=== PATIENT | female | born 1995 | race Caucasian/White ===

== ENCOUNTER 2017-09-24 00:22 | Outpatient (CLI) | payer OTHER ==
[2017-09-24 00:45] VITALS: BP 122/71
[2017-09-24] MEDS ORDERED: VISTARIL PO ONE (01:48)
== END 2017-09-24 02:05 | disposition home or self-care (01) ==
LOC: TRG 00:22
PROVIDERS: ATTEND Obstetrics & Gynecology
DX: O47.1 False labor at or after 37 completed weeks of gestation (principal); Z3A.38 38 weeks gestation of pregnancy
CPT/HCPCS: 59025; Q0177

== ENCOUNTER 2017-09-25 09:15 | Inpatient (IN) | payer OTHER ==
[2017-09-25] MEDS ORDERED: CYTOTEC ONE (09:21)
[2017-09-25] MEDS ORDERED: BRETHINE SUB-Q PRN (09:33)
[2017-09-25] MEDS ORDERED: XYLOCAINE 2% INFILTRATI ONE (09:33)
[2017-09-25] MEDS ORDERED: CYTOTEC PR ONE (09:35)
[2017-09-25] MEDS ORDERED: LANSINOH TP PRN (09:36)
[2017-09-25] MEDS ORDERED: NORCO 5/325 PO PRN (09:36)
[2017-09-25] MEDS ORDERED: TYLENOL PO PRN (09:36)
[2017-09-25] MEDS ORDERED: DULCOLAX PR PRN (09:36)
[2017-09-25] MEDS ORDERED: MILK OF MAGNESIA PO PRN (09:36)
[2017-09-25] MEDS ORDERED: BENADRYL PO PRN (09:36)
[2017-09-25] MEDS ORDERED: TUCKS PAD TP PRN (09:36)
[2017-09-25] MEDS ORDERED: ZOFRAN IV PRN (09:36)
[2017-09-25] MEDS ORDERED: PHENERGAN PO PRN (09:36)
--- NOTE | 2017-09-25 09:55 | History and Physical Report ---
History of Present Illness Date of examination: 09/25/17 (pt presents in labor imminent delivery) Date of admission: 09/25/17 09:17 History of present illness: EDC Confirmation: 10/05/2017 Gestational Age: 8 5/7 weeks Past History : 3 Term Births: 1 Living Children: 1 Para: 1 Aborta: 1 Spont. Ab: 1 # 1 Delivery date: 12/2013 Weeks Gestation: 10 Delivery type: SAB # 2 Delivery date: 03/06/2015 Weeks Gestation: 41 Delivery type: Vaginal Anesthesia type: epidural Delivery location: [facility] Infant Sex: male weight: 6.81 Comments: postdates IOL Risk Factors: Smoked Tobacco Use: Never smoker Smokeless Tobacco Use: Never Passive smoke exposure: no Drug use: no HIV high-risk behavior: low risk Alcohol use: no Past Medical History: Reviewed history from 07/03/2014 and no changes required: none Past Surgical History: Reviewed history from 07/03/2014 and no changes required: negative Past Medical History Anesthesia Complications: negative Anemia: negative Autoimmune Disorder: negative Bleeding Disorder: negative Blood Transfusions: negative Breast Disease: negative Diabetes: negative Heart Disease: negative Hypertension: negative Hepatitis/Liver Disease: negative Kidney Disease/UTI: negative Neurologic/Epilepsy/Migraines: negative Phlebitis/Varicosities: negative Psychiatric: negative Pulmonary Disease/Asthma: negative Thyroid Disease: negative Hospitalizations: negative Surgery (Non-salt miner): negative Abnormal PAP: negative MIKEL Exposure: negative Infertility: negative Uterine Anomaly: negative Uterine Surgery (not C/S): negative Other Gynecologic Problems: negative Social Hx: Patient is single [place] Smoking History: Patient has never smoked. Infection History Hx of STD: none HIV Risk Eval: low risk Hepatitis B Risk Eval: low risk Varicella/Chicken Pox Status: Previous Disease TB Risk: no Genetic History Congenital Heart Defect: Mom: no Dad: no Isael Disease: Mom: no Dad: no Thalassemia Mom: no Dad: no Neural Tube Defect Mom: no Dad: no Down's Syndrome Mom: no Dad: yes Comments: Dad 1st cousin Jovanny-Sachs Mom: no Dad: no Sickle Cell Disease/Trait Mom: no Dad: no Hemophilia Mom: no Dad: no Muscular Dystrophy Mom: no Dad: no Cystic Fibrosis Mom: no Dad: no Lee Ann Chorea Mom: no Dad: no Mental Retardation Mom: no Dad: no Fragile X Mom: no Dad: no Other Genetic/Chromosomal Disorder Mom: no Dad: no Child w/other defect Dad: no Comments: motor delay at 1 y/o Enviromental Exposures Xray Exposure: no Medication, drug, or alcohol use since LMP: no Chemical/Other Exposure: no Exposure to Cat Liter: no Hx of Parvovirus (Fifth Disease): no Active Medications (reviewed today): PLUS 27-1 MG ORAL TABLET ( VIT-FE FUMARATE-FA) 1 po qd Current Allergies: No known allergies Past History - Obstetrical History Expected Date of Delivery: 10/05/17 Actual Gestation: 38 Week(s) 4 Day(s) : 3 Para: 1 Hx # Term Pregnancies: 1 Spontaneous Abortions: 1 Number of Living Children: 1 Medications and Allergies Allergies Allergy/AdvReac Type Severity Reaction Status Date / Time No Known Allergies Allergy Verified 01/17/14 08:53 Home Medications Medication Instructions Recorded Confirmed Last Taken Type Pnv 29-1 Tablet 1 tab PO DAILY 09/24/17 09/24/17 09/23/17 10:00 History Active Meds: Active Medications Acetaminophen (Tylenol) 650 mg PO Q4H PRN PRN Reason: Pain MILD(1-3)/Fever >100.5/[place] Acetaminophen/Hydrocodone Bitart (Esparto 5/325) 2 each PO Q6H PRN PRN Reason: Pain, Moderate (4-6) Bisacodyl (Dulcolax) 10 mg ID BID PRN PRN Reason: Constipation Diphenhydramine HCl (Benadryl) 25 mg PO Q6H PRN PRN Reason: Itching Diphtheria/Tetanus/Acell Pertussis (Boostrix) 0.5 ml IM .ONCE ONE Stop: 09/26/17 06:01 Lactated Ringer's (Lactated Ringers) 1,000 mls @ 125 mls/hr IV DIRECT APRYL Oxytocin/Sodium Chloride (Pitocin/Ns 20 Unit/1000ml Drip) 20 units in 1,000 mls @ 125 mls/hr IV DIRECT APRYL Ibuprofen (Motrin) 800 mg PO Q8H APRYL Magnesium Hydroxide (Milk Of Magnesia) 30 ml PO HS PRN PRN Reason: Constipation Measles/Mumps/Rubella Vaccine Live (M-M-R Ii Vaccine) 0.5 ml SUB-Q .ONCE ONE Stop: 09/26/17 06:01 Multi-Ingredient Ointment (Lansinoh) 1 applic TP PRN PRN PRN Reason: Sore Nipples Ondansetron HCl (Zofran) 4 mg IV Q8H PRN PRN Reason: Nausea And Vomiting Promethazine HCl (Phenergan) 25 mg PO Q6H PRN PRN Reason: Nausea And Vomiting Sodium Chloride (Sodium Chloride Flush Syringe 10 Ml) 10 ml IV PRN NR Stop: 09/27/17 09:59 Terbutaline Sulfate (Brethine) 0.25 mg SUB-Q ONCE PRN PRN Reason: Hyperstimulation/Hypertonicity Witch Terese/Glycerin (Tucks Pad) 1 each TP PRN PRN PRN Reason: Hemorrhoid/cleansing/soothing - Vital Signs Vital signs: Temp Pulse Resp BP Pulse Ox 70 137/63 09/25/17 09:53 09/25/17 09:53 - Physical Exam Breasts: Positive: deferred Cardiovascular: Regular rate, Normal S1, Normal S2 Lungs: Positive: Clear to auscultation Abdomen: Positive: normal appearance, soft, normal bowel sounds. Negative: distention, tenderness Genitourinary (Female): Positive: normal external genitalia Vulva: both: normal Vagina: Positive: normal moisture. Negative: discharge Cervix: Negative: lesion, discharge Uterus: Positive: normal size, normal contour Adnexa: both: normal Anus/Rectum: Positive: normal perianal skin, heme negative. Negative: rectal mass, hemorrhoids Extremities: Positive: normal Deep Tendon Reflex Grade: Normal +2 - Obstetrical FHR: auscultation normal Cervical Dilatation: 10 (BBOW clear fluid) Cervical Effacement Percentage: 100 station: +2 Uterine Contraction Pattern: Regular Uterine Contraction Intensity: Strong/Firm Results All other labs normal. Strep Gp B ILYA [A] Positive HBsAg Screen Negative Negative *1 RPR Non Reactive Non Reactive *2 Rubella Antibodies, IgG 1.86 index Immune >0.99 *3 Non-immune <0.90 Equivocal 0.90 - 0.99 Immune >0.99 ABO Grouping A *4 Rh Factor Positive *5 Please note: Prior records for this patient's ABO / Rh type are not available for additional verification. Antibody Screen Negative Negative *6 WBC 6.3 x10E3/uL 3.4-10.8 *7 RBC 4.06 x10E6/uL 3.77-5.28 *8 Hemoglobin 12.0 g/dL 11.1-15.9 *9 Hematocrit 36.8 % 34.0-46.6 *10 MCV 91 fL 79-97 *11 MCH 29.6 pg 26.6-33.0 *12 MCHC 32.6 g/dL 31.5-35.7 *13 RDW 14.2 % 12.3-15.4 *14 Platelets 228 x10E3/uL 150-379 *15 Neutrophils 66 % Not Estab. *16 Lymphs 25 % Not Estab. *17 Monocytes 8 % Not Estab. *18 Eos 1 % Not Estab. *19 Basos 0 % Not Estab. *20 ! Immature Cells <No Reported Value> *21 Neutrophils (Absolute) 4.2 x10E3/uL 1.4-7.0 *22 Lymphs (Absolute) 1.6 x10E3/uL 0.7-3.1 *23 Monocytes(Absolute) 0.5 x10E3/uL 0.1-0.9 *24 Eos (Absolute) 0.1 x10E3/uL 0.0-0.4 *25 Baso (Absolute) 0.0 x10E3/uL 0.0-0.2 *26 ! Immature Granulocytes 0 % Not Estab. *27 ! Immature Grans (Abs) 0.0 x10E3/uL 0.0-0.1 *28 ! NRBC <No Reported Value> *29 Hematology Comments: <No Reported Value> *30 Tests: (2) Cystic Fibrosis Profile (445871) ! CF, Screen Comment: *31 RESULTS: Negative for 32 mutations analyzed Tests: (3) HB Solu + Rflx [facility] ([id number]) Hemoglobin (Hgb) Solubility Negative Negative *33 Tests: (4) Panel 265337 ([id number]) HIV Screen 4th Generation wRfx Non Reactive Non Reactive *34 Tests: (5) HCV Ab w/Rflx to Verification ([id number]) ! HCV Ab 0.1 s/co ratio 0.0-0.9 *35 Tests: (6) Comment: ([id number]) ! Comment: SPRCS *36 Non reactive HCV antibody screen is consistent with no HCV infection, unless recent infection is suspected or other evidence exists to indicate HCV infection. Tests: (7) Urine Culture, Routine ([id number]) Urine Culture, Routine Final report *37 Tests: (8) Result ([id number]) ! Result 1 "Result Below..." *38 RESULT: Lactobacillus species 25,000-50,000 colony forming units per mL Susceptibility not normally performed on this organism. Assessment and Plan 21yo @ 38 weeks Precipitous labor Imminent delivery. GBS+ Orders in EMR
[2017-09-25] MEDS ORDERED: SODIUM CHLORIDE FLUSH SYRINGE 10 ML IV NR (10:00)
[2017-09-25] MEDS ORDERED: PITOCin/NS 20 UNIT/1000ML DRIP 20 UNITS/1,000 ML BAG IV SCH (10:00)
[2017-09-25] MEDS ORDERED: LACTATED RINGERS 1,000 ML IV SCH (10:00)
--- NOTE | 2017-09-25 10:05 | Procedure Note ---
OB Delivery Note - Delivery Date of Delivery: 09/25/17 Skin Piler: ROC BATISTA Estimated blood loss: 500cc - Vaginal Delivery presentation: vertex Delivery position: OA Intrapartum events: precipitous labor- <3hr Delivery induction: none Delivery monitor: none Route of delivery: Delivery placenta: spontaneous Delivery cord: 3 umbilical vessels Episiotomy: none Delivery laceration: 2nd degree Delivery repair: vicryl Anesthesia: local Delivery comments: Pt presented to Triage from home in active labor Fully dilated on arrival live born female over intact perineum Baby skin to skin. Cord blood obtained Placenta and membrane del complete and intact, 3 vessel cord. Pit IM given. Uterus boggy Cytotec 800mcgPR placed. 2nd degree laceration repaired with 2-0 vicryl over lidocaine. IV started Pitocin IVFs 8/9, EBL 500, Wgt 7-8.Mom and baby remain LDR stable FF @ umb Lochia mod - Infant A at 1 minute: 8 at 5 minutes: 9 Infant Gender: Female (wgt 7-8)
[2017-09-25 12:10] LABS: Hematocrit 43.7 % (30.3-42.9); Hemoglobin 14.9 gm/dl (10.1-14.3); Mean Corpuscular HGB Conc 34 % (30-34); Mean Corpuscular Hemoglobin 32 pg (28-32); Mean Corpuscular Volume 94 fl (79-97); Platelet Count 159 K/mm3 (140-440); Red Blood Count 4.66 M/mm3 (3.65-5.03); Red Cell Distribution Width 14.5 % (13.2-15.2)
[2017-09-25] MEDS: MOTRIN PO SCH (12:56)
[2017-09-25] MEDS ORDERED: MOTRIN PO SCH (14:00)
[2017-09-25 21:00] LABS: Hematocrit 38.1 % (30.3-42.9); Hemoglobin 12.9 gm/dl (10.1-14.3)
[2017-09-26] MEDS: MOTRIN PO SCH ×3 (02:47→18:40)
[2017-09-26] MEDS ORDERED: M-M-R II VACCINE SUB-Q ONE (06:00)
[2017-09-26] MEDS ORDERED: BOOSTRIX IM ONE (06:00)
--- NOTE | 2017-09-26 08:42 | Progress Note ---
Assessment and Plan - Patient Problems (1) Group B streptococcal infection during Current Visit: No Status: Acute Plan to address problem: -cont' pathway for -d/c home with infant cleared for d/c home (2) Spontaneous vaginal delivery Current Visit: No Status: Acute Plan to address problem: -routine pp care -d/c home in am Subjective - Subjective Date of service: 09/26/17 Principal diagnosis: PPD #1 s/p Interval history: Pt doing well. she is aware that due to GBS (+) status she will not be d/c home today. She is breast feeding and will get BTL for contraception. All questions were addressed and answered. Patient reports: appetite normal, voiding normally, pain well controlled, no dizzy ambulation : doing well, nursing well Objective - Vital Signs Latest vital signs: Vital Signs Temp Pulse Resp BP BP Pulse Ox 09/26/17 00:00 98.7 F 77 18 101/78 09/25/17 20:00 98.7 F 69 18 101/79 09/25/17 16:00 98.5 F 77 18 102/51 99 09/25/17 12:00 98.1 F 55 L 18 129/59 98 09/25/17 10:50 98.8 F 65 136/66 09/25/17 10:23 59 L 142/64 09/25/17 10:07 65 136/66 09/25/17 09:53 70 137/63 Intake and Output 09/25/17 09/26/17 09/26/17 22:59 06:59 14:59 Intake Total 300 1600 Balance 300 1600 Intake: IV 1000 PITOCin/NS 20 UNIT/1000ML 1000 DRIP 20 units In 1,000 ml @ 125 mls/hr IV DIRECT APRYL Rx#:[id number] Intake, Free Water 300 600 - Exam Breasts: Present: deferred Cardiovascular: Present: Regular rate, Normal S1, Normal S2 Lungs: Present: Clear to auscultation, Normal air movement Abdomen: Present: normal appearance, soft, normal bowel sounds. Absent: distention, tenderness, guarding Uterus: Present: normal, firm, fundal height below umbilicus. Absent: bogginess Extremities: Present: normal. Absent: tenderness, edema - Labs Labs: Abnormal lab results 09/25/17 Range/Units 09:11 Hgb 14.9 H (10.1-14.3) gm/dl Hct 43.7 H (30.3-42.9) %
[2017-09-27] MEDS: MOTRIN PO SCH ×2 (00:41→09:53)
--- NOTE | 2017-09-27 07:58 | Discharge Summary ---
Providers - Providers Date of Admission: 09/25/17 09:17 Date of discharge: 09/27/17 (desires d/c home) Attending physician: OSORIO ARRIOLA Primary care physician: OSORIO ARRIOLA Hospitalization Reason for admission: labor Condition: Good Procedures: uncomplicated vaginal delivery Hospital course: uncomplicated vaginal and course Disposition: DC-01 TO HOME OR SELFCARE - Discharge Diagnoses (1) Spontaneous vaginal delivery Status: Acute Core Measure Documentation - Palliative Care Palliative Care/ Comfort Measures: Not Applicable - Core Measures Any of the following diagnoses?: none Exam - Constitutional Vitals: Temp Pulse Resp BP Pulse Ox 98.5 F 69 18 109/61 96 09/27/17 01:50 09/27/17 01:50 09/27/17 01:50 09/27/17 01:50 09/26/17 17:37 General appearance: Present: no acute distress, well-nourished - EENT Eyes: Present: PERRL ENT: hearing intact, clear oral mucosa - Neck Neck: Present: supple, normal ROM - Respiratory Respiratory effort: normal Respiratory: bilateral: CTA - Cardiovascular Heart Sounds: Present: S1 & S2. Absent: rub, click - Extremities Extremities: pulses symmetrical, No edema Peripheral Pulses: within normal limits - Abdominal General gastrointestinal: Present: soft, non-tender, non-distended, normal bowel sounds Female genitourinary: Present: normal - Integumentary Integumentary: Present: clear, warm, dry - Musculoskeletal Musculoskeletal: gait normal, strength equal bilaterally - Psychiatric Psychiatric: appropriate mood/affect, intact judgment & insight - Neurologic Neurologic: CNII-XII intact, moves all extremities - Additional findings Additional findings: Fundus firm, lochia small, VSSAF, H&H stable, Plan Activity: no restrictions Diet: regular Follow up with: OSORIO ARRIOLA MD [Primary Care Provider] - 11/01/17 (Congratulations! Please call [phone] to schedule your visit in 4 weeks. Call for any questions or concerns. ) Forms: [facility] Discharge Summary Prescriptions: Ibuprofen [Motrin 800 MG tab] 800 mg PO Q8HR PRN #30 tablet PRN Reason: Pain
[2017-09-27 08:34] VITALS: BP 100/54
== END 2017-09-27 15:10 | disposition home or self-care (01) | DRG 775 ==
LOC: TRG 09:15 → LD 09:17 → OB 12:06
PROVIDERS: ADMIT Obstetrics & Gynecology; ATTEND Obstetrics & Gynecology
PROC: 10E0XZZ Delivery of Products of Conception, External Approach (ICD-10-PCS; principal; 2017-09-25)
PROC: 0KQM0ZZ Repair Perineum Muscle, Open Approach (ICD-10-PCS; 2017-09-25)
PROC: 3E0234Z Introduction of Serum, Toxoid and Vaccine into Muscle, Percutaneous Approach (ICD-10-PCS; 2017-09-26)
DX: O62.3 Precipitate labor (principal); O99.824 Streptococcus B carrier state complicating childbirth; Z3A.38 38 weeks gestation of pregnancy; Z37.0 Single live birth; Z79.899 Other long term (current) drug therapy; O70.1 Second degree perineal laceration during delivery; Z23 Encounter for immunization
CPT/HCPCS: 36415; 85014; 85018; 85027; 86592; 86850; 86900; 86901; 99211; G0463; J2590

== ENCOUNTER 2018-12-15 06:08 | Day surgery (SDC) | payer OTHER ==
--- NOTE | 2018-12-14 16:37 | History and Physical Report ---
History of Present Illness Date of examination: 12/13/18 History of present illness: 23 YOHF Patient desires sterilization. Discussed with various methods of contraceptives including abstinence, barrier and hormonal. Discussed oral, implantable, dermal, injectable,intravaginal and intrauterine methods. Patient declined temporary contraceptives. Discuss the permanency of sterilization. High risk of regret and 0.5 to 1% risk of failure. Questions answered Patient understands and desires to proceed. Vital Signs: Patient Profile: 23 Years Old Female LMP: 11/26/2018 Height: 62 inches (157.48 cm) Weight: 144 pounds BMI: 26.34 Menstrual History: LMP (date): 11/26/2018 Current Method of Contraception: None Past History : 3 Term Births: 2 Premature Births: 0 Living Children: 2 Para: 2 Mult. Births: 0 Prev : 0 Aborta: 1 Elect. Ab: 0 Spont. Ab: 1 Ectopics: 0 # 1 Delivery date: 12/2013 Weeks Gestation: 10 Delivery type: SAB # 2 Delivery date: 03/06/2015 Weeks Gestation: 41 Delivery type: Vaginal Anesthesia type: epidural Delivery location: [facility] Infant Sex: male weight: 6.81 Comments: postdates IOL # 3 Delivery date: 09/25/2017 Weeks Gestation: 38 Delivery type: Vaginal Anesthesia type: none Delivery location: [facility] Infant Sex: female weight: 7.50 Comments: precipitous delivery; GBS+ untreated PILOT INSTRUCTOR History Uterine Surgery (not C/S): negative Operations: negative Anesthesia Complications: negative Abnormal PAP: Yes Uterine Anomaly: negative MIKEL Exposure: negative Infertility: negative Infection History HIV Risk Eval: no TB exposure: no Personal hx. of genital herpes: no Partner hx. of genital herpes: no Hx of STD: none Current Allergies: No known allergies Past Medical History: none Past Surgical History: negative Family History Summary: MGF - Has Family History of Hypertension - Entered On: 07/03/2014 Other family member - Has No Family History of Breast Cancer - Entered On: 07/03/2014 Other family member - Has No Family History of Cervical Cancer - Entered On: 07/03/2014 Other family member - Has No Family History of Colon Cancer - Entered On: 07/03/2014 Other family member - Has No Family History of Ovarvian Cancer - Entered On: 07/03/2014 Other family member - Has No Family History of DVT/PE on OCP - Entered On: 07/03/2014 Risk Factors: Smoked Tobacco Use: Never smoker Smokeless Tobacco Use: Never Passive smoke exposure: no Drug use: no HIV high-risk behavior: no Caffeine use: 0 drinks per day Alcohol use: no Exercise: yes Times per week: 6 Seatbelt use: 100 % Review of Systems General Denies fever, chills, sweats, anorexia, fatigue, weakness, malaise, weight loss and sleep disorder. Denies vaginal discharge, incontinence, dysuria, hematuria, urinary frequency, amenorrhea, menorrhagia, abnormal vaginal bleeding, pelvic pain, genital sores, decreased libido, painful periods, painful sex, urinary urgency, hot flashes, vaginal dryness, vaginal itching and vaginal odor. CV Denies chest pains, palpitations, syncope, dyspnea on exertion, orthopnea, PND and peripheral edema. Resp Denies cough, dyspnea at rest, excessive sputum, hemoptysis, wheezing and pleurisy. GI Denies nausea, vomiting, diarrhea, constipation, change in bowel habits, abdominal pain, melena, hematochezia, jaundice, gas/bloating, indigestion/heartburn, dysphagia and odynophagia. Breast Denies left breast lump, right breast lump, nipple discharge, bloody dis charge from nipple, breast pain, abnormal mammogram and breast enlargement. Psych Denies depression, anxiety, irritability and mood swings. Past History Past Medical History: other (SEE HPI) Past Surgical History: Other (SEE HPI) Social history: other (SEE HPI) Family history: other (SEE HPI) Medications and Allergies Allergies Allergy/AdvReac Type Severity Reaction Status Date / Time No Known Allergies Allergy Verified 12/08/18 15:38 Home Medications Medication Instructions Recorded Confirmed Last Taken Type No Known Home Medications [No 12/08/18 12/08/18 Unknown History Reported Home Medications] Exam - Physical Exam Narrative exam: HEENT: normocephalic, no lesions or deformities Skin no ulcers, xanthomas Chest: respiratory effort normal, clear to auscultation CV: regular, normal S1-S2, no murmur, no rub, no gallop Abdomen: soft, non-tender, no masses, bowel sounds normal Neuro: no gross anomalities Extremities: no clubbing, cyanosis, or edema PILOT INSTRUCTOR Exams Vulva/Vagina: no abnormalities Cervix: no abnormalities seen Uterus: normal position, midline, mobile Adnexae: no masses or tenderness Rectovaginal: no masses or tenderness Assessment and Plan - Patient Problems (1) Encounter for sterilization Status: Acute Plan to address problem: Patient desires sterilization.Discuss the permanency of sterilization. High risk of regret and 0.5 to 1% risk of failure. Information given Discussed options of tubal blockage and salpingectomy. Discussed salpingectomy's possible benefit of preventing ovarian cancer and it's increased risks of bleeding during the procedure. Discuss the risks of the surgery including infection, bleeding possibly heavy enough to require a blood transfusion, possilble damage to bowel, bladder or ureter. Patient understands and desires to proceed with salpingect alethea
[~2018-12-15 06:08] MED LIST: CELECOXIB 200 MG CAP PO NR; GABAPENTIN 300 MG CAP PO NR; LACTATED RINGERS 1,000 ML IV SCH; MIDAZOLAM 2 MG/2 ML INJ IV NR
[2018-12-15] MEDS ORDERED: HYDROmorphone 1 MG/1 ML INJ IV PRN (07:18)
--- NOTE | 2018-12-15 07:18 | Anesthesia Day of Surgery ---
Anesthesia Day of Surgery - Day of Surgery Patient Examined: Yes Patient H&P Reviewed: Yes Patient is NPO: Yes
--- NOTE | 2018-12-15 07:18 | Anesthesia Consultation ---
Anesthesia Consult and Med Hx Date of service: 12/15/18 - Airway Anesthetic Teeth Evaluation: Good ROM Head & Neck: Adequate Mental/Hyoid Distance: Adequate Mallampati Class: Class III Intubation Access Assessment: Possibly Difficult - Pulmonary Exam CTA: Yes - Cardiac Exam Cardiac Exam: RRR - Pre-Operative Health Status ASA Pre-Surgery Classification: ASA1 Proposed Anesthetic Plan: General - Pulmonary Hx Smoking: No - Cardiovascular System Hx Hypertension: No - Central Nervous System CVA: No - Gastrointestinal Hx Gastroesophageal Reflux Disease: No - Endocrine Hx Renal Disease: No Hx Liver Disease: No Hx Insulin Dependent Diabetes: No Hx Non-Insulin Dependent Diabetes: No Hx Thyroid Disease: No - Hematic Hx Anemia: No - Other Systems Hx Obesity: No
[2018-12-15] MEDS ORDERED: ROCURONIUM 50 MG/5 ML INJ IV ONE (07:24)
[2018-12-15] MEDS ORDERED: LIDOCAINE MPF (2%) 20 MG/1 ML VIAL 5 ML ONE (07:24)
[2018-12-15] MEDS ORDERED: PROPOFOL 200 MG/20 ML VIAL IV ONE (07:25)
[2018-12-15] MEDS ORDERED: fentaNYL 100 MCG/2 ML INJ ONE (07:25)
[2018-12-15] MEDS ORDERED: MIDAZOLAM 2 MG/2 ML INJ ONE (07:25)
[2018-12-15] MEDS ORDERED: BUPIVACAINE/PF (0.5%) 5 MG/1 ML 30 ML VIAL INFILTRATI ONE ×2 (07:46→08:16)
[2018-12-15] MEDS ORDERED: ceFAZolin/STERILE WATER 2 GM/20 ML SYRINGE IV NR (07:53)
[2018-12-15] MEDS ORDERED: dexAMETHasone 20 MG/5 ML VIAL ONE (08:11)
[2018-12-15] MEDS ORDERED: ONDANSETRON 4 MG/2 ML INJ ONE (08:11)
[2018-12-15] MEDS ORDERED: KETOROLAC 30 MG/1 ML INJ ONE (08:11)
[2018-12-15] MEDS ORDERED: SODIUM CHLORIDE 0.9% IRR 1,000 ML BOTTLE IR ONE (08:43)
[2018-12-15] MEDS ORDERED: NEOSTIGMINE 10MG/10 ML INJ MDV ONE (08:49)
[2018-12-15] MEDS ORDERED: GLYCOPYRROLATE 0.4 MG/2 ML INJ ONE ×2 (08:49→08:51)
--- NOTE | 2018-12-15 09:10 | Operative Report ---
Operative Report Operative Report: Pre-operative diagnosis: Patient desires permanent sterilization Post-operative diagnosis: Same Procedure name(s): Laparoscopic bilateral tubal ligation bilateral salpingectomy Surgeon: Abraham Mukherjee MD Photographic Restorer: [] Anesthesia: General endotracheal EBL: Minimal Complications: None Findings: Patient with uterus approximately 8-10 weeks in size with normal fallopian tubes bilaterally Specimen(s): None Patient was brought in the operating room. General anesthesia was induced without difficulty. She was placed in dorsal lithotomy position. Prepped and draped in usual sterile manner. Her urinary bladder with was emptied with a red rubber catheter. Speculum placed in her vagina and Sargis uterine manipulator was placed for uterine manipulation. Attention was then switched to the patient's abdomen. An infra-umbilical incision was made with a scalpel. This incision was spread with a hemostat. A 5 mm trocar was placed in this incision while lifting high the abdominal wall. Intra-abdominal presence was verified directly with the laparoscope. The patient was then insufflated to approximately 3 L of CO2 gas. The patient's findings as noted above. An accessory puncture was made suprapubically. The 8 mm trocar was placed through this incision under direct visualization with no evidence of internal organ damage. A second sensory puncture was made patient's left lower quadrant scalpel spray with a hemostat. A 5 mm trocar was placed under direct visualization without any evidence of internal organ damage. Each of the fallopian tube were identified by its fimbriated end. A portion approximately 1-2 cm from each cornua was grasped with the bipolar cutting instrument. This portion was transected. The distal and of the fallopian tube was then grasped and the mesosalpinx under each tube was cauterized and cut with the bipolar cutting instrument into the distal tube was detached. Remainder fallopian tube was hemostatic. At this time all instruments were removed. The patient was deinsufflated. The skin incisions were closed subcuticular with 4-0 Vicryl. Marcaine was given subcuticularly for postoperative pain relief. The patient tolerated procedure well. She was awakened in the operating room and accompanied to the recovery room in good condition.
--- NOTE | 2018-12-15 09:12 | Short Stay Summary ---
Short Stay Documentation Date of service: 12/15/18 - History Past Medical History: other (SEE HPI) Past Surgical History: Other (SEE HPI) Social history: other (SEE HPI) - Allergies and Medications Current Medications: Allergies No Known Allergies Allergy (Verified 12/08/18 15:38) Home Medications Medication Instructions Recorded Confirmed Last Taken Type oxyCODONE /ACETAMINOPHEN [Percocet 1 - 2 tab PO Q4H PRN #20 tablet 12/15/18 Unknown Rx 5/325 mg] Active Medications Cefazolin Sodium (Ancef/Sterile Water 2 Gm/20 Ml) 2 gm IV PREOP NR Stop: 12/15/18 16:00 Celecoxib (Celebrex) 200 mg PO PREOP NR Stop: 12/15/18 23:00 Last Admin: 12/15/18 06:50 Dose: 200 mg Documented by: Gabapentin (Gabapentin) 300 mg PO PREOP NR Stop: 12/15/18 23:00 Last Admin: 12/15/18 06:55 Dose: 300 mg Documented by: Hydromorphone HCl (Dilaudid) 0.5 mg IV Q10MIN PRN PRN Reason: Pain , Severe (7-10) Stop: 12/15/18 22:00 Lactated Ringer's (Lactated Ringers) 1,000 mls @ 100 mls/hr IV DIRECT APRYL Last Admin: 12/15/18 06:55 Dose: 100 mls/hr Documented by: Midazolam HCl (Versed) 2 mg IV PREOP NR Stop: 12/15/18 23:00 Last Admin: 12/15/18 07:40 Dose: 2 mg Documented by: - Brief post op/procedure progress note Date of procedure: 12/15/18 (see dictated operative note) - Hospital course Hospital course: Patient was admitted underwent the above him procedure without any complications. Patient will be discharged with follow-up in office in 1-2 weeks for postop check. - Disposition Condition at discharge: Good - Discharge Diagnoses (1) Encounter for sterilization Status: Acute Short Stay Discharge Plan Activity: advance as tolerated Diet: regular Wound: open to air Follow up with: MUSHTAQ NELSON MD [Primary Care Provider] - 7 Days Prescriptions: oxyCODONE /ACETAMINOPHEN [Percocet 5/325 mg] 1 - 2 tab PO Q4H PRN #20 tablet PRN Reason: Pain, Moderate
[2018-12-15 09:59] VITALS: BP 106/62
--- NOTE | 2018-12-15 10:09 | Post Anesthesia Evaluation ---
- Post Anesthesia Evaluation Patient Participated: Yes Airway Patent: Yes Stable Respiratory Function: Yes Nausea/Vomiting: No Temp > 96.8F: Yes Pain Manageable: Yes Adequeate Hydration: Yes Anesthesia Complications: No
== END 2018-12-15 10:55 | disposition home or self-care (01) ==
LOC: OR 06:08
PROVIDERS: ATTEND Obstetrics & Gynecology
DX: Z30.2 Encounter for sterilization (principal); Z79.899 Other long term (current) drug therapy; Z90.49 Acquired absence of other specified parts of digestive tract; Z87.440 Personal history of urinary (tract) infections; Z83.3 Family history of diabetes mellitus; Z98.890 Other specified postprocedural states
CPT/HCPCS: 58670; 81025; 88302; J1100; J1885; J2250; J2405; J2704; J2710; J3010; J7120